=== PATIENT | female | born 1940 | race Caucasian/White ===

== ENCOUNTER 2021-10-26 06:58 | Emergency (ER) | payer MEDICARE, OTHER ==
[~2021-10-26 06:58] MED LIST: ASPIRIN EC325 MG PO; DUONEB 2.5-0.5M1 AMP INH; DURAGESIC 25MC25 MCG TD; FLEXERIL10 MG PO; K-DUR20 MEQ PO; LOPRESSOR50 MG PO; MACROBID100 MG PO; NORVASC2.5 MG PO; OXYCODONE HCL15 MG PO; PRILOSEC20 MG PO; PRINIVIL20 MG PO; PROZAC20 MG PO; REQUIP1 MG PO; SOMA350 MG PO; SYNTHROID25 MCG PO; TRAZODONE 150M150 MG PO; VICODIN 10/3251 EACH PO; XANAX0.5 MG PO; ZOFRAN4 MG PO
[2021-10-26 07:45] LABS: BASOPHIL 0.7 % (0-2); EOSINOPHIL 1.4 % (0-7); HCT 41.5 % (37.0-47.0); HGB 12.7 g/dl (12.5-16.0); LYMPHOCYTE 11.3 % (15-48); MCH 26.9 pg (25.0-31.0); MCHC 30.6 g/dL (32.0-36.0); MCV 87.9 fL (78.0-100.0); MONOCYTE 4.5 % (0-12); MPV 9.6 fL (6.0-9.5); NEUTROPHIL 81.6 % (41-80); NRBC 0; PLT 212 K/uL (150-400); RBC 4.72 M/uL (4.20-5.40); RDW 13.8 % (11.5-14.0); WBC 12.7 K/uL (4.0-10.5)
[2021-10-26 08:00] LABS: ALBUMIN 3.4 g/dL (3.4-5.0); BILIRUBIN - TOTAL 0.4 mg/dL (0.2-1.0); BUN/CREAT RATIO (CALC) 17.6 RATIO; CREATININE 0.68 mg/dL (0.51-0.95); GLOBULIN (CALCULATION) 3.3 g/dL; POTASSIUM 4.1 mmol/L (3.5-5.1); TOTAL PROTEIN 6.7 g/dL (6.4-8.2)
[2021-10-26 09:00] LABS: CORONAVIRUS 2019 SARS-COV-2 NEGATIVE (NEGATIVE); INFLUENZA A NAA NEGATIVE (NEGATIVE)
[2021-10-26] MEDS ORDERED: MEDROL 4MG DOSEP4 MG PO ×2 (09:26→09:36)
[2021-10-26] MEDS ORDERED: AZITHROMYCIN250 MG PO ×2 (09:26→09:36)
[2021-10-27] MEDS ORDERED: PULMICORT0.5 MG/2 M NEB (04:58)
[2021-10-27] MEDS ORDERED: BREO ELLIPTA 11 EACH INH (04:58)
[2021-10-27] MEDS ORDERED: MAG-OXIDE 400M400 MG PO (04:59)
[2021-10-27] MEDS ORDERED: ARTHRITIS PAIN150 GM TOP (04:59)
[2021-10-27] MEDS ORDERED: VICODIN 10/3251 EACH PO (04:59)
[2021-10-27] MEDS ORDERED: METOPROLOL SUCC25 MG PO (05:00)
[2021-10-27] MEDS ORDERED: ANTIVERT25 MG PO (05:00)
[2021-10-27] MEDS ORDERED: PROTONIX 40MG T40 MG PO (05:01)
[2021-10-27] MEDS ORDERED: PERFOROMIS20 MCG/2 M INH (05:02)
[2021-10-27] MEDS ORDERED: POTASSIUM CHLO10 MEQ PO (05:03)
[2021-10-27] MEDS ORDERED: PROAIR HFA8.5 GM INH (05:04)
[2021-10-27] MEDS ORDERED: PHENERGAN12.5 M1 PO (05:05)
[2021-10-27] MEDS ORDERED: SOLIFENACIN SUC10 MG PO (05:05)
[2021-10-27] MEDS ORDERED: DEMADEX20 MG PO (05:06)
== END 2021-10-26 12:21 | disposition home or self-care (01) ==
LOC: FER 06:58
PROVIDERS: Internal Medicine
DX: J42 Unspecified chronic bronchitis (principal); Z87.891 Personal history of nicotine dependence; Z20.822 Contact with and (suspected) exposure to COVID-19
CPT/HCPCS: 36415; 36600; 71045; 80053; 82803; 83880; 84145; 84484; 85025; 93005; 94640; 94664; 94762; J3475; Q0162; U0002

== ENCOUNTER 2021-10-27 00:46 | Inpatient (IN) | payer MEDICARE, OTHER ==
[~2021-10-27] VITALS: Ht 162.6 cm; Wt 78.1 kg
[~2021-10-27 00:46] MED LIST changes: +AZITHROMYCIN250 MG PO; +MEDROL 4MG DOSEP4 MG PO
[2021-10-27 01:19] LABS: BASOPHIL 0.6 % (0-2); EOSINOPHIL 0 % (0-7); HCT 42.7 % (37.0-47.0); HGB 13.1 g/dl (12.5-16.0); LYMPHOCYTE 6.7 % (15-48); MCH 26.8 pg (25.0-31.0); MCHC 30.7 g/dL (32.0-36.0); MCV 87.3 fL (78.0-100.0); MONOCYTE 1.1 % (0-12); MPV 9.5 fL (6.0-9.5); NEUTROPHIL 91.1 % (41-80); NRBC 0; PLT 226 K/uL (150-400); RBC 4.89 M/uL (4.20-5.40); RDW 13.9 % (11.5-14.0)
[2021-10-27 01:23] LABS: INR 0.95 (0.9-1.2); PROTHROMBIN TIME 12.4 SECONDS (11.9-13.9); PTT 25.6 SECONDS (24.9-34.6)
[2021-10-27 01:41] LABS: ALBUMIN 3.5 g/dL (3.4-5.0); BILIRUBIN - TOTAL 0.4 mg/dL (0.2-1.0); BUN/CREAT RATIO (CALC) 18.8 RATIO; CREATININE 0.64 mg/dL (0.51-0.95); GLOBULIN (CALCULATION) 3.8 g/dL; POTASSIUM 4.8 mmol/L (3.5-5.1); TOTAL PROTEIN 7.3 g/dL (6.4-8.2)
[2021-10-27 02:37] LABS: CORONAVIRUS 2019 SARS-COV-2 NEGATIVE (NEGATIVE); INFLUENZA A NAA NEGATIVE (NEGATIVE)
[2021-10-27] MEDS ORDERED: BREO ELLIPTA 11 EACH INH (04:58)
[2021-10-27] MEDS ORDERED: PULMICORT0.5 MG/2 M NEB (04:58)
[2021-10-27] MEDS ORDERED: ARTHRITIS PAIN150 GM TOP (04:59)
[2021-10-27] MEDS ORDERED: VICODIN 10/3251 EACH PO (04:59)
[2021-10-27] MEDS ORDERED: MAG-OXIDE 400M400 MG PO (04:59)
[2021-10-27] MEDS ORDERED: ANTIVERT25 MG PO (05:00)
[2021-10-27] MEDS ORDERED: METOPROLOL SUCC25 MG PO (05:00)
[2021-10-27] MEDS ORDERED: PROTONIX 40MG T40 MG PO (05:01)
[2021-10-27] MEDS ORDERED: PERFOROMIS20 MCG/2 M INH (05:02)
[2021-10-27] MEDS ORDERED: POTASSIUM CHLO10 MEQ PO (05:03)
[2021-10-27] MEDS ORDERED: PROAIR HFA8.5 GM INH (05:04)
[2021-10-27] MEDS ORDERED: PHENERGAN12.5 M1 PO (05:05)
[2021-10-27] MEDS ORDERED: SOLIFENACIN SUC10 MG PO (05:05)
[2021-10-27] MEDS ORDERED: DEMADEX20 MG PO (05:06)
[2021-10-28 06:36] LABS: HCT 37.9 % (37.0-47.0); MCH 27.4 pg (25.0-31.0); MCHC 31.7 g/dL (32.0-36.0); MCV 86.5 fL (78.0-100.0); MPV 10.2 fL (6.0-9.5); RBC 4.38 M/uL (4.20-5.40); WBC 11.6 K/uL (4.0-10.5)
[2021-10-28 06:58] LABS: BUN/CREAT RATIO (CALC) 22.4 RATIO; CREATININE 0.67 mg/dL (0.51-0.95)
[2021-10-29] MEDS ORDERED: PROAIR HFA8.5 GM INH (12:04)
[2021-10-29] MEDS ORDERED: XANAX0.5 MG PO (12:04)
[2021-10-29] MEDS ORDERED: PREDNISONE 20MG20 MG PO (12:04)
[2021-10-29] MEDS ORDERED: VICODIN 10/3251 EACH PO (12:04)
== END 2021-10-30 11:35 | DRG 189 ==
LOC: FER 00:46 → FMS 02:56
PROVIDERS: Internal Medicine; ADMIT Family Medicine
PROC: B24BZZZ Ultrasonography of Heart with Aorta (ICD-10-PCS; principal; 2021-10-29)
DX: J96.21 Acute and chronic respiratory failure with hypoxia (principal); J44.1 Chronic obstructive pulmonary disease with (acute) exacerbation; I50.42 Chronic combined systolic (congestive) and diastolic (congestive) heart failure; K59.01 Slow transit constipation; R73.03 Prediabetes; Z20.822 Contact with and (suspected) exposure to COVID-19; K43.9 Ventral hernia without obstruction or gangrene; M81.0 Age-related osteoporosis without current pathological fracture; F41.9 Anxiety disorder, unspecified; E03.9 Hypothyroidism, unspecified; K44.9 Diaphragmatic hernia without obstruction or gangrene; I11.0 Hypertensive heart disease with heart failure; Z85.118 Personal history of other malignant neoplasm of bronchus and lung; Z99.81 Dependence on supplemental oxygen; Z80.3 Family history of malignant neoplasm of breast; Z90.2 Acquired absence of lung [part of]; I25.2 Old myocardial infarction; Z87.81 Personal history of (healed) traumatic fracture; Z28.311 Partially vaccinated for COVID-19; Z85.3 Personal history of malignant neoplasm of breast
CPT/HCPCS: 36415; 36600; 71250; 76705; 80048; 80053; 82803; 83036; 83880; 84145; 84484; 85025; 85610; 85730; 93005; 94010; 94640; 94664; 97110; 97162; 97166; 97530; 97530-GP; 97535; J0456; J2405; J2930; J3475; J7050; J7512; U0002